=== PATIENT | male | born 1940 | race Caucasian/White ===

== ENCOUNTER 2022-03-17 18:56 | Emergency (ER) | payer MEDICARE, SELFPAY ==
[2022-03-17 19:09] VITALS: BP 174/83; PULSE 87; RESP 16; TEMP 38.2; O2SAT 95
--- NOTE | 2022-03-17 19:15 | XRR_ITS ---
PROCEDURE INFORMATION: Exam: XR Chest Exam date and time: 03/17/2022 8:31 PM Age: 81 years old Clinical indication: Cough and dyspnea; Additional info: Dyspnea/cough TECHNIQUE: Imaging protocol: Radiologic exam of the chest. Views: 1 view. COMPARISON: No relevant prior studies available. FINDINGS: Lungs: Calcified granuloma in the left lung. Focal airspace opacity and oval density in the lingula. The right lung is clear. Pleural spaces: Unremarkable. No pleural effusion. No pneumothorax. Heart/Mediastinum: Unremarkable. No cardiomegaly. Bones/joints: Unremarkable. XR/XR chest 1V portable [id number] IMPRESSION: 1. Opacity in the lingula could represent atelectasis, pneumonia, or a neoplastic process. Follow-up with CT imaging recommended.
--- NOTE | 2022-03-17 19:34 | W.ED.FEVER ---
HPI - Fever General: Chief Complaint: Fever Stated Complaint: dizzy, cough, congestion Time Seen by Provider: 03/17/22 19:14 Source: patient Mode of arrival: ambulatory History of Present Illness: 81-year-old male presents emergency room dizziness cough congestion fever cough is nonproductive is not had any diarrhea no anosmia. Symptoms began about the last 24 to 36 hours. No chest pain no dysuria urgency or frequency. Patient is diabetic hypertensive and overweight low-grade fever on arrival. MD elicited complaint: fever Pertinent past history: diabetes Onset (ago): hour(s) (24-36) Exacerbating factors: nothing Associated symptoms: Deny abdominal pain, flank pain, chills, chest pain, confusion, cough, diarrhea, dysuria, extremity pain, headache(s), myalgias, nasal congestion, nausea, night sweats, rash, rhinorrhea, short of breath, sinus pain, stiffness, sore throat, vaginal discharge, vomiting or weight loss Review of Systems Const: Denies: fever(s), chills, fatigue, malaise or night sweats ENMT: Denies: nasal congestion or sinus pain Card: Denies: chest pain GI: Denies: abdominal pain, nausea, vomiting or diarrhea : Denies: flank pain, difficulty urinating, dysuria, urinary frequency or urinary urgency Musc: Denies: neck pain, back pain or extremity pain Neuro: Denies: headache(s) or confusion PFSH ED PFSH: Medical History (Updated 03/17/22 @ 20:49 by Vignesh Cornell DO) Diabetes mellitus HTN (hypertension) Obesity Social History (Updated 03/17/22 @ 20:44 by Vignesh Cornell DO) Smoking and tobacco status: never smoked Alcohol intake: never Physical Exam Const: COMMON NORMALS: no acute distress GENERAL APPEARANCE: cooperative and comfortable ORIENTATION/CONSCIOUSNESS: Yes awake, Yes oriented to person, Yes oriented to place and Yes oriented to time HENMT: COMMON NORMALS: normocephalic, atraumatic and hearing grossly normal bilaterally HEAD & SCALP: normocephalic and atraumatic Resp: COMMON NORMALS: normal respiratory effort, No retractions, No use of accessory muscles and clear to auscultation bilaterally AUSCULTATION: clear to auscultation bilaterally Cardio: COMMON NORMALS: regular rate, regular rhythm and No murmurs present (Cardio) RATE: regular rate RHYTHM: regular rhythm GI: COMMON NORMALS: Soft to palpation and No hepatosplenomegaly present AUSCULTATION: Yes normoactive bowel sounds PALPATION: Yes Soft to palpation, No Tenderness to palpation present (GI), No Guarding due to palpation present (GI) and Yes No hepatosplenomegaly present Extremity: COMMON NORMALS: normal to inspection, capillary refill normal, no clubbing, cyanosis or edema, no calf tenderness and no pedal edema Neuro: SENSORIUM/ORIENTATION: Yes oriented to person, Yes oriented to place and Yes oriented to time Skin: COMMON NORMALS: no rashes or lesions noted GENERAL SKIN EXAM: no rashes or lesions noted Course Vital Signs: Vital signs: Vital Signs Temperature 100.7 F H 03/17/22 19:09 Pulse Rate 76 03/17/22 20:08 Respiratory Rate 18 03/17/22 19:47 Blood Pressure 147/76 03/17/22 20:08 Pulse Oximetry 95 03/17/22 20:08 Oxygen Delivery Me thod 03/17/22 20:08 MDM - Fever Medical Decision Making Patient COVID-positive tolerating well. He should have follow-up CT based on the chest x-ray findings at some point in the future. Encouraged him to follow-up with his primary care doctor. Discussion with him about COVID he does wish [facility] Medical Records I reviewed the patient's medical records. Lab Data I reviewed the patient's lab results. 03/17/22 20:55 Radiology Impressions Chest X-Ray 03/17/22 19:15 IMPRESSION: 1. Opacity in the lingula could represent atelectasis, pneumonia, or a neoplastic process. Follow-up with CT imaging recommended. Laboratory Results Sodium 139 mmol/L (136-145) 03/17/22 20:55 Potassium 4.2 mmol/L (3.5-5.1) 03/17/22 20:55 Chloride 102 mmol/L (98-107) 03/17/22 20:55 Carbon Dioxide 28 mmol/L (22-29) 03/17/22 20:55 Anion Gap 13.2 (5-19) 03/17/22 20:55 BUN 13 mg/dL (8-23) 03/17/22 20:55 Creatinine 1.0 mg/dL (0.7-1.2) 03/17/22 20:55 GFR Calculation Not Reportable 03/17/22 20:55 Glucose 97 mg/dL (65-115) 03/17/22 20:55 Calculated Osmolality 288 mOsm/kg (285-295) 03/17/22 20:55 Calcium 8.7 mg/dL (8.5-10.5) 03/17/22 20:55 Influenza Type A Ag negative (Negative) 03/17/22 19:34 Influenza Type B Ag negative (Negative) 03/17/22 19:34 SARS-CoV-2 Ag (Rapid) positive (Negative) 03/17/22 19:34 Discharge Plan Discharge Patient Disposition: Home Clinical Impression: COVID-19 Condition: Stable Prescriptions: New Paxlovid (EUA) 300 mg (150 mg x 2)-100 mg tablets,dose pack See Rx Instructions .ROUTE .COMPLEX Qty: 30 0RF Rx Instructions: take TWO 150 mg tablets of nirmatrelvir with ONE 100 mg tablet of ritonavir twice daily for 5 days No Action atorvastatin 20 mg tablet 20 mg PO DAILY Adult Aspirin EC Low Strength 81 mg Tablet,Delayed Release (Dr/Ec) 81 mg PO DAILY levothyroxine 125 mcg Tablet 125 mcg PO DAILY omeprazole 20 mg Capsule,Delayed Release(Dr/Ec) 20 mg PO DAILY Humalog Mix 75-25 KwikPen 100 unit/mL (75-25) Insulin Pen 32 unit SUBCUT DIRECTED Rx Instructions: 32 units in morning and 30 units in evening Januvia 100 mg Tablet 100 mg PO DAILY Discharge Orders: Discharge ED (Routine); Ordered 03/17/22 Ordered By: Vignesh Cornell Referrals: Thiago Tim DO [Primary Care Provider] - Discharge Diet: Usual diet Discharge Activity: Resume usual activity Patient Instructions: Opioid Safety, Pain Management Activity Restrictions/Additional Instructions: You were seen today for respiratory symptoms. You tested positive for COVID. Here given Paxlovid to take for 5 days at the end of this time you may still have some symptoms Paxlovid slows down the activity of the viruses but does not completely resolve it. He did have a slight abnormality in your chest x-ray and should follow-up with your primary care doctor for further evaluation after your COVID symptoms have resolved. Coding Level of Care Code ED Platen Drier Operator for Wilmer Fwd Exam Detailed
[2022-03-17] MEDS: sodium chloride 0.9% 500 ML 999 ML IV (19:44)
[2022-03-17 19:47] VITALS: BP 159/94; PULSE 78; RESP 18; O2SAT 95
[2022-03-17] MEDS: labetalol 5 mg/mL SDV 20mL 10 MG IVP (19:53)
[2022-03-17 20:07] LABS: Influenza A by IFA negative (Negative); Influenza B by IFA negative (Negative); SARS Covid-2 Antigen positive (Negative)
[2022-03-17 20:08] VITALS: BP 147/76; PULSE 76; O2SAT 95
[2022-03-17 21:18] LABS: Blood Urea Nitrogen 13 mg/dL (8-23); Calcium 8.7 mg/dL (8.5-10.5); Carbon Dioxide 28 mmol/L (22-29); Chloride 102 mmol/L (98-107); Glucose 97 mg/dL (65-115); Osmolality Calculated 288 mOsm/kg (285-295); Sodium 139 mmol/L (136-145)
[2022-03-17 21:20] LABS: Anion Gap 13.2 (5-19); Potassium 4.2 mmol/L (3.5-5.1)
[2022-03-17 21:28] VITALS: PULSE 78; RESP 18; O2SAT 95
== END 2022-03-17 21:25 | disposition home or self-care (01) ==
PROVIDERS: Emergency Medicine; Emergency Provider Family Medicine; PCP Internal Medicine
DX: U07.1 COVID-19 (principal); Z79.82 Long term (current) use of aspirin; Z79.4 Long term (current) use of insulin; E11.9 Type 2 diabetes mellitus without complications; I10 Essential (primary) hypertension
CPT/HCPCS: 71045; 80048; 87426; 87804; 96361; 96374; 99284; J3490; J7040

== ENCOUNTER 2022-11-22 06:27 | Emergency (ER) | payer MEDICARE, SELFPAY ==
[2022-11-22 06:28] VITALS: BP 154/74; PULSE 92; RESP 18; TEMP 36.8; O2SAT 95; BMI 40.0
--- NOTE | 2022-11-22 06:47 | ECG_ITS ---
[facility] Test Date: 2022-11-22 Pat Name: Les Stubbs Department: Room: Gender: Male [employer] Stewardess: : 1940 Requested By: Vignesh Naranjo Order Number: [id number] Oksana MD: Alison Wan M.D. Measurements Intervals [place] Rate: 87 P: 55 CO: 149 QRS: -30 QRSD: 94 T: 35 QT: 357 QTc: 430 Interpretive Statements SINUS RHYTHM BORDERLINE LEFT AXIS DEVIATION [QRS AXIS < -20] No previous ECG available for comparison Electronically Signed On 11-22-2022 20:23:30 CDT by Alison Wan M.D. [id number]
--- NOTE | 2022-11-22 06:47 | XRR_ITS ---
PROCEDURE INFORMATION: Exam: XR Chest Exam date and time: 11/22/2022 6:52 AM Age: 82 years old Clinical indication: Cough and dyspnea; Additional info: Dyspnea/cough TECHNIQUE: Imaging protocol: Radiologic exam of the chest. Views: 1 view. Total images: 2 COMPARISON: CR XR chest 2V* [id number] 03/25/2022 9:31 AM FINDINGS: Lungs: Trace atelectasis or scar noted in the left lung base. Minimal opacity laterally at the right lung base may represent minimal atelectasis or contusion. Benign granulomatous disease of the lung is noted. Pleural spaces: Unremarkable. No pleural effusion. No pneumothorax. Heart/Mediastinum: Unremarkable. No cardiomegaly. Bones/joints: Diffuse osteopenia noted. Right 7th, 8th, and 9th rib fractures. XR/XR chest 1V portable [id number] IMPRESSION: 1. Trace atelectasis or scar noted in the left lung base. 2. Right 7th, 8th, and 9th rib fractures. 3. Minimal opacity laterally at the right lung base may represent minimal atelectasis or contusion.
--- NOTE | 2022-11-22 06:51 | USCV_ITS ---
Les Stubbs Age: 82 Gender: M : 1940 Exam Date: 11/22/2022 07:24 Ordering Phys: Vignesh Cornell DO Technologist: [place] [facility] [place] Indication: swelling PROCEDURES: Venous duplex imaging was performed in bilateral lower extremities. The following venous structures were evaluated: common femoral vein, profunda vein, proximal portion of the greater saphenous vein, superficial femoral vein, and the popliteal vein. In addition, the posterior tibial and peroneal trunk were evaluated. FINDINGS: Normal 2-D Doppler and augmentation and compressibility throughout the lower extremity venous structures. Additional imaging through the proximal calf veins also reveals no thrombus. Limited evaluation of the greater saphenous vein is patent with no thrombus. CONCLUSIONS No DVT bilateral lower extremities. Dr. Hanh Short DO (Electronically Signed) Final Date: 22 November 2022 09:51 S
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
[2022-11-22 07:10] LABS: Basophils # 0.1 10^3/uL (0.0-0.1); Basophils % 0.4 %; Eosinophils # 0.1 10^3/uL (0.0-0.8); Eosinophils % 0.4 %; Hemoglobin 12.5 g/dL (11.7-16.6); Lymphocytes # 1.2 10^3/uL (0.8-4.8); Lymphocytes % 8.5 %; Mean Corpuscular HGB Conc 30.5 g/dL (30.0-36.0); Mean Corpuscular Hemoglobin 28.4 pg (28.0-34.0); Mean Corpuscular Volume 93.2 fl (80-94); Mean Platelet Volume 11.9 fL (7.4-10.4); Monocytes % 6.9 %; Neutrophils # 11.85 10^3/uL (1.8-7.7); Neutrophils % 83.6 %; Nucleated Red Blood Cells % 0 %; Platelet Count 244 10^3/cmm (130-400); Red Cell Distribution Width 15.7 % (12.1-15.1); White Blood Count 14.2 10^3/uL (4.0-10.0)
[2022-11-22 07:13] VITALS: BP 146/75; PULSE 86; O2SAT 96
--- NOTE | 2022-11-22 07:15 | PC.NURSE ---
PT NOTED TO HAVE SOME PURULENT DRAINAGE FROM LEFT LEG SURGICAL SITE. DRAINAGE IS THIN. SMALL AMOUNT. PHYSICIAN AWARE.
[2022-11-22 07:32] LABS: Alanine Aminotransferase 7 U/L (0-41); Albumin Level 3.7 g/dL (3.5-5.2); Alkaline Phosphatase 148 U/L (40-130); Anion Gap 16.2 (5-19); Aspartate Amino Transferase 16 U/L (0-40); Blood Urea Nitrogen 13 mg/dL (8-23); Calcium 8.7 mg/dL (8.5-10.5); Carbon Dioxide 24 mmol/L (22-29); Chloride 103 mmol/L (98-107); Globulin 2.8 g/dL (1.3-4.6); Glucose 353 mg/dL (65-115); Osmolality Calculated 300 mOsm/kg (285-295); Potassium 5.2 mmol/L (3.5-5.1); Sodium 138 mmol/L (136-145); Total Bilirubin 0.3 mg/dL (0.15-1.2); Total Protein 6.5 g/dL (6.6-8.7)
[2022-11-22] MEDS: iohexol 350 mg/mL 500 mL Btl (per mL) IV (07:50)
--- NOTE | 2022-11-22 08:24 | PC.NURSE ---
PT PLACED ON CONTINUOUS NIBP, SPO2, AND CM
[2022-11-22 08:45] VITALS: BP 147/96; PULSE 86; O2SAT 99
[2022-11-22 09:49] VITALS: BP 191/103; PULSE 78; O2SAT 95
== END 2022-11-22 09:51 | disposition home or self-care (01) ==
PROVIDERS: Emergency Provider Family Medicine; PCP Internal Medicine
DX: R06.00 Dyspnea, unspecified (principal); R06.4 Hyperventilation; F41.9 Anxiety disorder, unspecified; Z79.82 Long term (current) use of aspirin; Z79.4 Long term (current) use of insulin; E11.9 Type 2 diabetes mellitus without complications; I10 Essential (primary) hypertension
CPT/HCPCS: 36415; 71045; 71275; 80053; 85025; 93005; 93970; 99285; Q9967

== ENCOUNTER → 2022-11-29 13:11 | Outpatient (BNVA) | payer MEDICARE, SELFPAY | PROVIDERS: PCP Internal Medicine; Referring Provider Neurological Surgery; Visit Provider Internal Medicine | DX: D35.2 Benign neoplasm of pituitary gland (principal); H53.8 Other visual disturbances; Z79.890 Hormone replacement therapy | CPT/HCPCS: 99204 ==

== ENCOUNTER 2022-12-02 07:47 | Outpatient (CLI) | payer MEDICARE, SELFPAY ==
[2022-12-02 08:01] LABS: Total Volume Urine 2000 ml
[2022-12-02 08:14] LABS: Urine Creatinine 76 mg/dL (39-259)
[2022-12-08 11:50] LABS: Free Cortisol Urine 44.9 mcg/24 h (4.0-50.0); Total Urine 2000 mL; Urine Creatinine 1.42 g/24 h (0.50-2.15)
== END 2022-12-02 07:48 | disposition home or self-care (01) ==
LOC: LAB 07:48
PROVIDERS: PCP Internal Medicine; Visit Provider Internal Medicine
DX: D35.2 Benign neoplasm of pituitary gland (principal)
CPT/HCPCS: 82530; 82570

== ENCOUNTER 2023-02-16 12:55 | Oncology outpatient (recurring) (ONCR) | payer MEDICARE, SELFPAY ==
[2023-01-26 13:52] LABS: Basophils # 0.1 10^3/uL (0.0-0.1); Basophils % 0.6 %; Eosinophils # 0.2 10^3/uL (0.0-0.8); Eosinophils % 1.7 %; Hematocrit 38.8 % (37-53); Lymphocytes # 2.1 10^3/uL (0.8-4.8); Lymphocytes % 23.9 %; Mean Corpuscular HGB Conc 31.4 g/dL (30-55); Mean Corpuscular Hemoglobin 27.2 pg (27-33); Mean Corpuscular Volume 86.6 fl (82-101); Mean Platelet Volume 11.5 fL (7.4-10.4); Monocytes # 0.8 10^3/uL (0.2-0.9); Monocytes % 8.7 %; Neutrophils # 5.63 10^3/uL (1.8-7.7); Neutrophils % 64.6 %; Nucleated Red Blood Cells % 0 %; Platelet Count 215 10^3/cmm (157-399); Red Blood Count 4.48 10^6/uL (3.85-5.65); Red Cell Distribution Width 16.1 % (12.1-15.1); White Blood Count 8.71 10^3/uL (3.29-11.43)
[2023-01-26 14:18] LABS: Albumin Level 3.8 g/dL (3.5-5.2); Alkaline Phosphatase 145 U/L (40-130); Anion Gap 13.5 (5-19); Aspartate Amino Transferase 24 U/L (0-40); Blood Urea Nitrogen 16 mg/dL (8-23); C Reactive Protein 10.7 mg/L (0.0-4.9); Carbon Dioxide 27 mmol/L (22-29); Chloride 101 mmol/L (98-107); Creatine Phosphokinase 40 U/L (39-308); Globulin 3.4 g/dL (1.3-4.6); Glucose 169 mg/dL (65-115); Osmolality Calculated 289 mOsm/kg (285-295); Potassium 4.5 mmol/L (3.5-5.1); Sodium 137 mmol/L (136-145); Total Bilirubin 0.5 mg/dL (0.15-1.2); Total Protein 7.2 g/dL (6.6-8.7)
[2023-01-26 14:31] LABS: Alanine Aminotransferase 18 U/L (0-41)
[2023-02-02 14:30] VITALS: BP 131/85; PULSE 60; RESP 16; TEMP 36.3; O2SAT 98
[2023-02-02 14:40] LABS: Basophils % 0.7 %; Eosinophils # 0.2 10^3/uL (0.0-0.8); Eosinophils % 2.6 %; Hematocrit 40.7 % (37-53); Lymphocytes # 1.9 10^3/uL (0.8-4.8); Mean Corpuscular HGB Conc 31.4 g/dL (30-55); Mean Corpuscular Hemoglobin 27.2 pg (27-33); Mean Corpuscular Volume 86.6 fl (82-101); Mean Platelet Volume 11.5 fL (7.4-10.4); Monocytes # 0.5 10^3/uL (0.2-0.9); Monocytes % 8.4 %; Neutrophils # 3.41 10^3/uL (1.8-7.7); Neutrophils % 56.1 %; Nucleated Red Blood Cells % 0 %; Platelet Count 251 10^3/cmm (157-399); Red Cell Distribution Width 16.3 % (12.1-15.1); White Blood Count 6.07 10^3/uL (3.29-11.43)
[2023-02-02 14:59] LABS: Alanine Aminotransferase 12 U/L (0-41); Alkaline Phosphatase 123 U/L (40-130); Aspartate Amino Transferase 16 U/L (0-40); Blood Urea Nitrogen 15 mg/dL (8-23); C Reactive Protein 5.1 mg/L (0.0-4.9); Calcium 9.2 mg/dL (8.5-10.5); Carbon Dioxide 27 mmol/L (22-29); Chloride 102 mmol/L (98-107); Creatine Phosphokinase 52 U/L (39-308); Globulin 3.4 g/dL (1.3-4.6); Glucose 114 mg/dL (65-115); Osmolality Calculated 290 mOsm/kg (285-295); Sodium 139 mmol/L (136-145); Total Bilirubin 0.5 mg/dL (0.15-1.2); Total Protein 7.4 g/dL (6.6-8.7)
[2023-02-02 15:01] LABS: Anion Gap 14.7 (5-19)
[2023-02-02 15:02] LABS: Potassium 4.7 mmol/L (3.5-5.1)
[2023-02-09 13:00] VITALS: BP 147/79; PULSE 83; RESP 16; TEMP 36.6; O2SAT 97
[2023-02-09 13:10] LABS: Basophils % 0.5 %; Eosinophils # 0.2 10^3/uL (0.0-0.8); Eosinophils % 2.5 %; Hematocrit 41.5 % (37-53); Lymphocytes # 1.5 10^3/uL (0.8-4.8); Lymphocytes % 19.9 %; Mean Corpuscular HGB Conc 31.1 g/dL (30-55); Mean Corpuscular Hemoglobin 27.3 pg (27-33); Mean Corpuscular Volume 87.7 fl (82-101); Mean Platelet Volume 11.6 fL (7.4-10.4); Monocytes # 0.6 10^3/uL (0.2-0.9); Monocytes % 7.6 %; Neutrophils % 69.2 %; Nucleated Red Blood Cells % 0 %; Platelet Count 211 10^3/cmm (157-399); Red Blood Count 4.73 10^6/uL (3.85-5.65); Red Cell Distribution Width 16.6 % (12.1-15.1); White Blood Count 7.52 10^3/uL (3.29-11.43)
[2023-02-09 13:27] LABS: Alanine Aminotransferase 14 U/L (0-41); Alkaline Phosphatase 118 U/L (40-130); Anion Gap 14.4 (5-19); Aspartate Amino Transferase 17 U/L (0-40); Blood Urea Nitrogen 14 mg/dL (8-23); C Reactive Protein 15.9 mg/L (0.0-4.9); Calcium 9.2 mg/dL (8.5-10.5); Carbon Dioxide 26 mmol/L (22-29); Chloride 103 mmol/L (98-107); Glucose 117 mg/dL (65-115); Osmolality Calculated 290 mOsm/kg (285-295); Potassium 4.4 mmol/L (3.5-5.1); Sodium 139 mmol/L (136-145); Total Bilirubin 0.3 mg/dL (0.15-1.2)
[2023-02-16 13:50] VITALS: BP 125/76; PULSE 56; RESP 18; TEMP 36; O2SAT 97
[2023-02-16 14:49] LABS: Cortisol Random 11.79 ug/dL (2.47-19.5); Testosterone Total 186.9 ng/dL (193-740); Thyroid Stimulating Hormone 3.26 uIU/mL (0.27-4.20)
[2023-02-16 15:15] LABS: Luteinizing Hormone 5.7 mIU/mL (1.7-8.6); Prolactin 10.87 ng/mL (4.0-15.2)
[2023-02-17 10:28] LABS: Alanine Aminotransferase 29 U/L (0-41); Albumin Level 4.1 g/dL (3.5-5.2); Alkaline Phosphatase 112 U/L (40-130); Anion Gap 18.4 (5-19); Aspartate Amino Transferase 24 U/L (0-40); Blood Urea Nitrogen 18 mg/dL (8-23); C Reactive Protein 26.1 mg/L (0.0-4.9); Calcium 9.3 mg/dL (8.5-10.5); Carbon Dioxide 24 mmol/L (22-29); Chloride 102 mmol/L (98-107); Creatine Phosphokinase 52 U/L (39-308); Globulin 2.9 g/dL (1.3-4.6); Glucose 93 mg/dL (65-115); Osmolality Calculated 292 mOsm/kg (285-295); Potassium 4.4 mmol/L (3.5-5.1); Sodium 140 mmol/L (136-145); Total Bilirubin 0.2 mg/dL (0.15-1.2)
[2023-02-22 15:04] LABS: IGF1 LC/MS 111 ng/mL (34-246); Z Score (Male) 0.2 SD (-2.0 - +2.0)
== END 2023-02-21 23:59 | disposition home or self-care (01) ==
PROVIDERS: Internal Medicine; PCP Internal Medicine; Visit Provider Internal Medicine
DX: D35.2 Benign neoplasm of pituitary gland (principal)
CPT/HCPCS: 36592; 80053; 82533; 82550; 83001; 83002; 83520; 84146; 84305; 84403; 84439; 84443; 85025; 86140

== ENCOUNTER 2023-03-01 10:00 | Oncology outpatient (recurring) (ONCR) | payer MEDICARE, SELFPAY ==
[2023-02-23 13:30] VITALS: PULSE 88; RESP 18; TEMP 36.1; O2SAT 98
[2023-02-23 13:35] LABS: Basophils # 0.1 10^3/uL (0.0-0.1); Basophils % 1.1 %; Eosinophils # 0.2 10^3/uL (0.0-0.8); Eosinophils % 2.4 %; Hematocrit 42.5 % (37-53); Lymphocytes # 1.7 10^3/uL (0.8-4.8); Lymphocytes % 24.8 %; Mean Corpuscular HGB Conc 31.3 g/dL (30-55); Mean Corpuscular Hemoglobin 27.4 pg (27-33); Mean Corpuscular Volume 87.4 fl (82-101); Mean Platelet Volume 11.5 fL (7.4-10.4); Monocytes # 0.5 10^3/uL (0.2-0.9); Monocytes % 7.5 %; Neutrophils # 4.26 10^3/uL (1.8-7.7); Neutrophils % 63.9 %; Nucleated Red Blood Cells % 0 %; Platelet Count 241 10^3/cmm (157-399); Red Blood Count 4.86 10^6/uL (3.85-5.65); Red Cell Distribution Width 16.3 % (12.1-15.1); White Blood Count 6.66 10^3/uL (3.29-11.43)
[2023-02-23 13:41] LABS: Alanine Aminotransferase 20 U/L (0-41); Albumin Level 4.2 g/dL (3.5-5.2); Alkaline Phosphatase 114 U/L (40-130); Anion Gap 12.3 (5-19); Aspartate Amino Transferase 18 U/L (0-40); Blood Urea Nitrogen 12 mg/dL (8-23); Calcium 9.3 mg/dL (8.5-10.5); Carbon Dioxide 28 mmol/L (22-29); Chloride 100 mmol/L (98-107); Creatine Phosphokinase 56 U/L (39-308); Globulin 3.2 g/dL (1.3-4.6); Glucose 163 mg/dL (65-115); Osmolality Calculated 285 mOsm/kg (285-295); Potassium 4.3 mmol/L (3.5-5.1); Sodium 136 mmol/L (136-145); Total Bilirubin 0.5 mg/dL (0.15-1.2); Total Protein 7.4 g/dL (6.6-8.7)
[2023-03-01 10:50] VITALS: BP 140/87; PULSE 70; RESP 16; O2SAT 97
== END 2023-03-23 23:59 | disposition home or self-care (01) ==
PROVIDERS: Internal Medicine; PCP Internal Medicine; Visit Provider Radiology Radiation Oncology
DX: Z53.9 Procedure and treatment not carried out, unspecified reason
CPT/HCPCS: 36592; 80053; 82550; 85025; 86141

== ENCOUNTER → 2023-11-21 09:26 | Outpatient (BNVA) | payer MEDICARE, SELFPAY | PROVIDERS: PCP Internal Medicine; Visit Provider Internal Medicine | DX: D35.2 Benign neoplasm of pituitary gland (principal); H53.8 Other visual disturbances; E23.0 Hypopituitarism; Z79.890 Hormone replacement therapy | CPT/HCPCS: 99214 ==

== ENCOUNTER 2024-10-08 18:54 | Observation (INO) | payer MEDICARE, SELFPAY ==
[2024-10-08] VITALS (10 sets, daily range): BP systolic 132–178; BP diastolic 66–83; PULSE 54–73; RESP 16–19; TEMP 36.3–36.7; O2SAT 94–98; BMI 30.5
[2024-10-08 19:06] LABS: Glucose Point of Care 132 mg/dL (70-110)
--- NOTE | 2024-10-08 19:14 | CTR_ITS ---
PROCEDURE INFORMATION: Exam: CT Head Without Contrast Exam date and time: 10/08/2024 7:17 PM Age: 84 years old Clinical indication: Stroke-like symptoms; Generalized weakness; Additional info: Symptoms of acute stroke TECHNIQUE: Imaging protocol: Computed tomography of the head without contrast. Radiation optimization: All CT scans at this facility use at least one of these dose optimization techniques: automated exposure control; mA and/or kV adjustment per patient size (includes targeted exams where dose is matched to clinical indication); or iterative reconstruction. Other technique: STROKE PROTOCOL was implemented. COMPARISON: No relevant prior studies available. RADIATION DOSE METRICS: Total DLP (mGy-cm): 1120.68 FINDINGS: Brain: 8 mm curvilinear hyperdensity in the left cerebellum. No acute territorial region of loss of appiah-white differentiation. No mass effect or midline shift. Generalized parenchymal volume loss. Mild scattered nonspecific periventricular and subcortical white matter hypodensities, commonly sequela of chronic microvascular ischemic change. Cerebral ventricles: No acute hydrocephalus. Pituitary gland and sella: Heterogeneous enlarged pituitary measuring 1.9 x 1.8 cm, may contact the left optic chiasm without significant mass effect/displacement. Paranasal sinuses: Visualized sinuses are well-aerated. No fluid levels. Mastoid air cells: Visualized mastoid air cells are well aerated. Orbital cavities: No acute abnormality of the visualized orbits. Bones: No acute calvarial fracture. Chronic left orbital floor fracture. Soft tissues: No acute abnormality. CT/CT head thrombolytic [id number] IMPRESSION: 1. No CT evidence of acute territorial infarct. 2. 8 mm curvilinear hypodensity in the left cerebellum. Favor prominent vascular structure such as developmental venous anomaly or other vascular lesion, but cannot definitively exclude acute hemorrhage. MRI is recommended for further evaluation. 3. 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 Pituitary protocol MRI recommended for further evaluation. ASSESSMENT: ASPECTS ([place] Stroke Program Early CT Score) is 10.
--- NOTE | 2024-10-08 19:22 | CTR_ITS ---
PROCEDURE INFORMATION: Exam: CTA Head With Contrast, Arteriography Exam date and time: 10/08/2024 7:31 PM Age: 84 years old Clinical indication: Weakness; Additional info: Possible stroke TECHNIQUE: Imaging protocol: Computed tomographic angiography of the head with contrast. Exam focused on the arteries. 3D rendering (Not supervised by radiologist): MIP and/or 3D reconstructed images were created by the technologist. Radiation optimization: All CT scans at this facility use at least one of these dose optimization techniques: automated exposure control; mA and/or kV adjustment per patient size (includes targeted exams where dose is matched to clinical indication); or iterative reconstruction. Contrast material: OMNIPAQUE 350; Contrast volume: 100 ml; Contrast route: INTRAVENOUS (IV); COMPARISON: CT head thrombolytic [id number] 10/08/2024 7:17 PM RADIATION DOSE METRICS: Total DLP (mGy-cm): 485.88 FINDINGS: ANTERIOR CIRCULATION: Right internal carotid artery: Patent without high-grade stenosis. Right middle cerebral artery: M1 and M2 segments are patent without high-grade stenosis. Right anterior cerebral artery: A1 and A2 segments are patent without high-grade stenosis. Left internal carotid artery: Patent without high-grade stenosis. Left middle cerebral artery: M1 and M2 segments are patent without high-grade stenosis. Left anterior cerebral artery: A1 and A2 segments are patent without high-grade stenosis. POSTERIOR CIRCULATION: Right vertebral artery: V4 segment is patent without high-grade stenosis. Left vertebral artery: V4 segment is patent without high-grade stenosis. Basilar artery: Patent without high-grade stenosis. Right posterior cerebral artery: type origin of the right [employer] with hypoplastic P1 segment. P2 segment patent without high-grade stenosis. Left posterior cerebral artery: P1 and P2 segments are patent without high-grade stenosis. 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 Given this finding, differential consideration of possible hemorrhage in this region described on noncontrast CT head report is unlikely. Dural venous sinuses patent. Brain: Pituitary lesion as described on CT head report, with slight abutment of the optic chiasm better appreciated on this exam. Cerebral ventricles: No acute hydrocephalus. Bones/joints: No acute fracture. Soft tissues: Unremarkable. Other findings: No aneurysm. PROCEDURE INFORMATION: Exam: CTA Neck With Contrast Exam date and time: 10/08/2024 7:31 PM Age: 84 years old Clinical indication: Weakness; Additional info: Possible stroke TECHNIQUE: Imaging protocol: Computed tomographic angiography of the neck with contrast. Exam focused on the cervical segments of the vasculature. 3D rendering (Not supervised by radiologist): MIP and/or 3D reconstructed images were created by the technologist. Radiation optimization: All CT scans at this facility use at least one of these dose optimization techniques: automated exposure control; mA and/or kV adjustment per patient size (includes targeted exams where dose is matched to clinical indication); or iterative reconstruction. Contrast material: OMNIPAQUE 350; Contrast volume: 100 ml; Contrast route: INTRAVENOUS (IV); COMPARISON: CT angio chest PE protcl [id number] 11/22/2022 7:43 AM RADIATION DOSE METRICS: Total DLP (mGy-cm): 485.88 FINDINGS: Right common carotid artery: Patent. No high grade stenosis. Right internal carotid artery: Patent. Mild carotid bulb plaque with no stenosis by NASCET criteria. Right external carotid artery: Patent. No high grade stenosis at the origin. Left common carotid artery: Patent. No high grade stenosis. Left internal carotid artery: Patent. Mild carotid bulb plaque with no stenosis by NASCET criteria. Left external carotid artery: Patent. No high grade stenosis at the origin. Right vertebral artery: Patent. No high grade stenosis. Left vertebral artery: Dominant. Patent without high-grade stenosis. Soft tissues: Unremarkable. Bones/joints: No acute fracture. Cervical spondylosis. CT/CT angio headneck* [id number] IMPRESSION: 1. No large vessel occlusion or high-grade stenosis. 2. The curvilinear hyperdensity in the left cerebellum described on same-day noncontrast CT head report corresponds to a prominent enhancing venous structure, most consistent with developmental venous anomaly. IMPRESSION: Patent cervical carotid and vertebral arteries. No high-grade stenosis. REFERENCES: NASCET CRITERIA. The degree of stenosis in the cervical segment of the internal carotid artery is based on NASCET criteria. Normal is no stenosis. Mild is less than 50% stenosis. Moderate is 50-69% stenosis. Severe is 70% to 99% stenosis. Total occlusion is no detectable patent lumen.
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
--- NOTE | 2024-10-08 19:31 | W.ED.NEUROSD ---
HPI - Neuro Symptoms/Deficit General: Chief Complaint: Neuro Symptoms/Deficit Stated Complaint: numbness all over, sweating Time Seen by Provider: 10/08/24 19:12 History of Present Illness: 84-year-old man with history of obesity, diabetes and hypertension who presents emergency room with strokelike symptoms. He has had multiple episodes of slurred speech, difficulty speaking over the last 2 days. It is resolved upon arrival. He was seen upon arrival by neurology. Currently with no deficits. His recently. Today's episode was not witnessed by family. Related Data Home Medications ?Medication ?Instructions ?Recorded ?Confirmed aspirin 81 mg tablet,delayed 81 mg PO DAILY 03/17/22 11/21/23 release atorvastatin 20 mg tablet 20 mg PO DAILY 03/17/22 11/21/23 sitagliptin phosphate 100 mg 100 mg PO DAILY 03/17/22 11/29/22 tablet (Januvia) cholecalciferol (vitamin D3) 25 25 mcg PO DAILY 11/22/22 11/21/23 mcg (1,000 unit) capsule (Vitamin D3) insulin glargine 100 unit/mL (3 40 unit SUBCUT QAM 11/22/22 11/21/23 mL) subcutaneous pen (Lantus Solostar U-100 Insulin) lidocaine 4 % topical patch 1 patch topical BID PRN Pain 11/22/22 11/29/22 lorazepam 0.5 mg tablet 0.5 mg PO DAILY 11/22/22 11/21/23 melatonin 3 mg tablet 3 mg PO QPM 11/22/22 11/29/22 ondansetron HCl 4 mg tablet 4 mg PO Q4H 11/22/22 11/29/22 pantoprazole 40 mg tablet,delayed 40 mg PO DAILY 11/22/22 11/21/23 release Previous Rx's ?Medication ?Instructions ?Recorded levothyroxine 25 mcg tablet 25 mcg PO DAILY #90 tabs 11/21/23 Allergies Allergy/AdvReac Type Severity Reaction Status Date / Time No Known Allergies Allergy Verified 11/21/23 07:42 Review of Systems Narrative: Constitutional symptoms: Negative except as documented in HPI. Skin symptoms: Negative except as documented in HPI. Eye symptoms: Negative except as documented in HPI. ENMT symptoms: Negative except as documented in HPI. Respiratory symptoms: Negative except as documented in HPI. Cardiovascular symptoms: Negative except as documented in HPI. Gastrointestinal symptoms: Negative except as documented in HPI. Genitourinary symptoms: Negative except as documented in HPI. Musculoskeletal symptoms: Negative except as documented in HPI. Neurologic symptoms: Negative except as documented in HPI. Psychiatric symptoms: Negative except as documented in HPI. Endocrine symptoms: Negative except as documented in HPI. PFSH ED PFSH: Medical History Obesity Diabetes mellitus HTN (hypertension) Social History Smoking and tobacco/nicotine status: never used tobacco/nicotine Alcohol intake: never Physical Exam Narrative: EXAM NARRATIVE: General: Alert, no acute distress. Skin: Warm, dry. Head: Normocephalic, atraumatic. Neck: Supple, trachea midline. Eye: Extraocular movements are intact. Ears, nose, mouth and throat: mucosa moist. Cardiovascular: Regular, Normal peripheral perfusion. Respiratory: Lungs are clear to auscultation, respirations are non-labored, breath sounds are equal, Symmetrical chest wall expansion. Gastrointestinal: Soft, Nontender, Non distended Musculoskeletal: Normal ROM, no deformity. Neurological: Alert and oriented, No focal neurological deficit observed. Psychiatric: Cooperative, appropriate mood & affect. Course Vital Signs: Vital signs: Vital Signs Temperature 97.6 F 10/08/24 18:57 Pulse Rate 67 10/08/24 19:40 Respiratory Rate 16 10/08/24 18:57 Blood Pressure 144/71 10/08/24 19:40 Pulse Oximetry 97 10/08/24 19:40 Oxygen Delivery Me thod Room Air 10/08/24 19:40 MDM - Neuro Symptoms/Deficit Medical Decision Making Medical decision making: Differential diagnosis for patient with focal neurologic deficit(s) includes but not limited to and based on the above HPI, review of systems and physical exam: ischemic stroke, hemorrhagic stroke and embolic stroke secondary to atrial fibrillation), TIA, Napoles's palsey, metabolic encephalopathy with previous stroke. Orders placed to evaluate differential diagnosis based on the above differential, HPI and physical exam NIH Stroke Scale/Score (NIHSS) from [email or web address] on 10/08/2024 All calculations should be rechecked by clinician prior to use RESULT SUMMARY: 0 points NIH Stroke Scale INPUTS: 1A: Level of consciousness ?> 0 = Alert; keenly responsive 1B: Ask month and age ?> 0 = Both questions right 1C: 'Blink eyes' & 'squeeze hands' ?> 0 = Performs both tasks 2: Horizontal extraocular movements ?> 0 = Normal 3: Visual martel ?> 0 = No visual loss 4: Facial palsy ?> 0 = Normal symmetry 5A: Left arm motor drift ?> 0 = No drift for 10 seconds 5B: Right arm motor drift ?> 0 = No drift for 10 seconds 6A: Left leg motor drift ?> 0 = No drift for 5 seconds 6B: Right leg motor drift ?> 0 = No drift for 5 seconds 7: Limb Ataxia ?> 0 = No ataxia 8: Sensation ?> 0 = Normal; no sensory loss 9: Language/aphasia ?> 0 = Normal; no aphasia 10: Dysarthria ?> 0 = Normal 11: Extinction/inattention ?> 0 = No abnormality CT head: No acute intracranial process. no intracranial hemorrhage, no evidence of infarct. no evidence of acute fracture.This was reviewed and interpreted by myself the ER physician. CTA of the head and neck: Structure seen on previous CT is thought to be a venous abnormality. No obvious stenosis or occlusions are identified. No mass. This was reviewed and interpreted by myself the emergency room physician. I also reviewed the radiology report. Consultation: I spoke with Dr. Steel who is reviewed the films and has evaluated the patient and recommends admission for an echo in the morning and for evaluation overnight. Symptoms have resolved. No TNKase indicated. She recommends increasing statin and adding Plavix. Lab Review: Laboratory results were reviewed and interpreted by myself the emergency room physician. No leukocytosis. No anemia. No renal failure. I reviewed the patient's medical record. Reexamination: Patient remained stable. No increased work of breathing. No altered mental status. No focal motor deficits. Consultation: I spoke with Dr. Barahona who is on-call for the hospitalist service who agrees to admission. Assessment and plan: TIA -I discussed the patient with the hospitalist on-call who is admitting the patient. - Discussed findings and plan with patient. Answered any questions. - All laboratory values were reviewed and interpreted personally by myself, the ER physician - All imaging was reviewed and interpreted personally by myself, the ER physician. - Evaluation and treatment of this problem were appropriate in the emergency setting Lab Data 10/08/24 19:20 10/08/24 19:[address] 10/08/24 19:[address]: 1[address] CT evidence of acute territorial infarct. 2. 8 mm curvilinear hypodensity in the left cerebellum. Favor prominent vascular structure such as developmental venous anomaly or other vascular lesion, but cannot definitively exclude acute hemorrhage. MRI is recommended for further evaluation. 3. 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 Pituitary protocol MRI recommended for further evaluation. ASSESSMENT: ASPECTS ([place] Stroke Program Early CT Score) is 10. ADDENDUM: 10/08/241944 THIS REPORT CONTAINS FINDINGS THAT MAY BE CRITICAL TO PATIENT CARE. The findings were verbally communicated via telephone conference with Dr. Sena at 7:43 PM CDT on 10/08/2024. Head/Neck CTA 10/08/24 19:22 IMPRESSION: 1. No large vessel occlusion or high-grade stenosis. 2. The curvilinear hyperdensity in the left cerebellum described on same-day noncontrast CT head report corresponds to a prominent enhancing venous structure, most consistent with developmental venous anomaly. IMPRESSION: Patent cervical carotid and vertebral arteries. No high-grade stenosis. REFERENCES: NASCET CRITERIA. The degree of stenosis in the cervical segment of the internal carotid artery is based on NASCET criteria. Normal is no stenosis. Mild is less than 50% stenosis. Moderate is 50-69% stenosis. Severe is 70% to 99% stenosis. Total occlusion is no detectable patent lumen. Laboratory Results WBC 8.43 10^3/uL (3.29-11.43) 10/08/24 19:20 RBC 5.27 10^6/uL (3.85-5.65) 10/08/24 19:20 Hgb 14.80 g/dL (11.27-16.99) 10/08/24 19:20 Hct 46.5 % (37-53) 10/08/24 19:20 MCV 88.2 fl (82-101) 10/08/24 19:20 MCH 28.1 pg (27-33) 10/08/24 19:20 MCHC 31.8 g/dL (30-55) 10/08/24 19:20 RDW 15.0 % (12.1-15.1) 10/08/24 19:20 Plt Count 177 10^3/cmm (157-399) 10/08/24 19:20 MPV 11.6 fL (7.4-10.4) H 10/08/24 19:20 Neut % (Auto) 75.7 % 10/08/24 19:20 Lymph % (Auto) 11.9 % 10/08/24 19:20 [place] % (Auto) 9.7 % 10/08/24 19:20 Eos % (Auto) 1.8 % 10/08/24 19:20 Baso % (Auto) 0.7 % 10/08/24 19:20 Neut # (Auto) 6.38 10^3/uL (1.8-7.7) 10/08/24 19:20 Lymph # (Auto) 1.0 10^3/uL (0.8-4.8) 10/08/24 19:20 [place] # (Auto) 0.8 10^3/uL (0.2-0.9) 10/08/24 19:20 Eos # (Auto) 0.2 10^3/uL (0.0-0.8) 10/08/24 19:20 Baso # (Auto) 0.1 10^3/uL (0.0-0.1) 10/08/24 19:20 Nucleated RBC % (auto) 0 % 10/08/24 19:20 Nucleated RBCs # 0.0 /100WBC 10/08/24 19:20 PT 13.90 SECONDS (12.1-14.9) 10/08/24 19:20 INR 1.00 (0.8-1.2) 10/08/24 19:20 APTT 29.9 SECONDS (23.9-36.7) 10/08/24 19:20 Sodium 144 mmol/L (136-145) 10/08/24 19:20 Potassium 3.9 mmol/L (3.5-5.1) 10/08/24 19:20 Chloride 105 mmol/L (98-107) 10/08/24 19:20 Carbon Dioxide 27 mmol/L (22-29) 10/08/24 19:20 Anion Gap 15.9 (5-19) 10/08/24 19:20 BUN 22 mg/dL (8-23) 10/08/24 19:20 Creatinine 1.2 mg/dL (0.7-1.2) 10/08/24 19:20 GFR Calculation Not Reportable 10/08/24 19:20 Glucose 117 mg/dL (65-115) H 10/08/24 19:20 POC Glucose 132 mg/dL (70-110) H 10/08/24 19:02 Calculated Osmolality 302 mOsm/kg (285-295) H 10/08/24 19:20 Lactic Acid 1.0 mmol/L (0.5-2.2) 10/08/24 19:52 Calcium 9.2 mg/dL (8.5-10.5) 10/08/24 19:20 Total Bilirubin 0.3 mg/dL (0.15-1.2) 10/08/24 19:20 AST 40 U/L (0-40) 10/08/24 19:20 ALT 35 U/L (0-41) 10/08/24 19:20 Alkaline Phosphatase 101 U/L (40-130) 10/08/24 19:20 Total Protein 6.8 g/dL (6.6-8.7) 10/08/24 19:20 Albumin 3.9 g/dL (3.5-5.2) 10/08/24 19:20 Globulin 2.9 g/dL (1.3-4.6) 10/08/24 19:20 All radiology interpretation(s) finalized by discharge Discharge Plan Discharge Patient Disposition: Admitted As Inpatient Clinical Impression: TIA (transient ischemic attack) Condition: Stable Coding Level of Care Code ED Paper [employer]one Maker for Wilmer Grissom
[2024-10-08 19:34] LABS: Basophils # 0.1 10^3/uL (0.0-0.1); Basophils % 0.7 %; Eosinophils # 0.2 10^3/uL (0.0-0.8); Eosinophils % 1.8 %; Hematocrit 46.5 % (37-53); Lymphocytes % 11.9 %; Mean Corpuscular HGB Conc 31.8 g/dL (30-55); Mean Corpuscular Hemoglobin 28.1 pg (27-33); Mean Corpuscular Volume 88.2 fl (82-101); Mean Platelet Volume 11.6 fL (7.4-10.4); Monocytes # 0.8 10^3/uL (0.2-0.9); Monocytes % 9.7 %; Neutrophils # 6.38 10^3/uL (1.8-7.7); Neutrophils % 75.7 %; Nucleated Red Blood Cells % 0 %; Platelet Count 177 10^3/cmm (157-399); Red Blood Count 5.27 10^6/uL (3.85-5.65); White Blood Count 8.43 10^3/uL (3.29-11.43)
[2024-10-08] MEDS: iohexol 350 mg/mL 500 mL Btl (per mL) IV (19:36)
--- NOTE | 2024-10-08 19:42 | ECG_ITS ---
[facility]: 2024-10[facility]08 Pat Name: Les Stubbs Department: Room: Gender: Male Communications Department Chairperson: : 1940 Requested By: Lisa Naranjo Order Number: [id number] Oksana MD: Alison Wan M.D. Measurements Intervals [place] Rate: 67 P: 59 LA: 158 QRS: -15 QRSD: 102 T: 44 QT: 437 QTc: 465 Interpretive Statements SINUS RHYTHM WITH MARKED SINUS ARRHYTHMIA Compared to ECG 11/22/2022 06:35:03 No significant changes Electronically Signed On 10-10-2024 06:09:29 CDT by Alison Wan M.D. [email or web address]
[2024-10-08 19:58] LABS: Partial Thromboplastin Time 29.9 SECONDS (23.9-36.7)
[2024-10-08 20:12] LABS: Alanine Aminotransferase 35 U/L (0-41); Albumin Level 3.9 g/dL (3.5-5.2); Alkaline Phosphatase 101 U/L (40-130); Anion Gap 15.9 (5-19); Aspartate Amino Transferase 40 U/L (0-40); Blood Urea Nitrogen 22 mg/dL (8-23); Calcium 9.2 mg/dL (8.5-10.5); Carbon Dioxide 27 mmol/L (22-29); Chloride 105 mmol/L (98-107); Globulin 2.9 g/dL (1.3-4.6); Glucose 117 mg/dL (65-115); Osmolality Calculated 302 mOsm/kg (285-295); Potassium 3.9 mmol/L (3.5-5.1); Sodium 144 mmol/L (136-145); Total Bilirubin 0.3 mg/dL (0.15-1.2); Total Protein 6.8 g/dL (6.6-8.7)
--- NOTE | 2024-10-08 21:26 | PC.NURSE ---
pt report called to Han[facility] on med surg. [id number].
[2024-10-08 21:41] LABS: Bilirubin Urine Negative (Negative); Blood Urine Negative (Negative); Glucose Urine UA 3+ (Normal); Ketones Urine Negative (Negative); Leukocyte Esterase Urine Negative (Negative); Nitrate Urine Negative (Negative); Protein Urine Trace (Negative); Urine Appearance Clear (CLEAR); Urine Color Yellow (Yellow); pH Urine 6.5 (5-7)
[2024-10-08 21:46] LABS: Add Urine Microscopic? YES; Bacteria Urine None Seen /hpf; Hyaline Casts Urine 0-4 /lpf; RBC Urine 0-2 /hpf (0-2); Squamous Epithelial Cell Urine 0-5 /hpf (0-5); WBC Urine 0-5 /hpf (0-5)
[2024-10-08 22:15] LABS: Amphetamines Screen Urine Negative (Negative); Barbiturates Screen Urine Negative (Negative); Benzodiazepines Screen Urine Positive (Negative); Cocaine Screen Urine Negative (Negative); Opiate Screen Urine Negative (Negative); PCP Screen Urine Negative (Negative); THC Screen Urine Negative (Negative)
[2024-10-08 22:16] LABS: Add Urine Culture? No; Specific Gravity, Urine 1.089 (1.005-1.030)
--- NOTE | 2024-10-08 22:40 | PM.HP ---
Providers/Chief Complaint Admitting Physician: Alisson Barahona MD--- seen patient before midnight Primary Care Provider: Jay Gardiner MD Chief Complaint: numbness , sweating, dysarthria, speech problems History of Present Illness Les Stubbs is a 84 year old male with medical history significant for high blood pressure diabetes type 2 hypercholesterolemia presenting with speech problems regarding speech difficulty in the room. Patient does have pituitary adenoma for which he does MRI over at [facility] he had a CT and CTA of the head and neck done and it was unremarkable. Patient to do MRI without contrast in the morning and optimizing medication with adding Plavix to patient regimen of 81 mg of aspirin. Patient is on atorvastatin 20 mg we will increase this to 40 mg once daily. Neurology has been consulted with Dr. Steel who had already seen the patient. Patient at this time of my evaluation had resolved and his speech difficulty. Will hydrate patient gently to provide volume will allow some degree of blood pressure for cerebral perfusion will keep glycemia euglycemic. Patient will have MRI echocardiogram tomorrow if all is well then patient can go home. Patient is on 23-hour observation status on [facility] with telemetry. Review of Systems Narrative: System review upon 10 organ system reviewed we are noted to be fairly unremarkable at this time of my evaluation. Medications/Allergies Home Medications ?Medication ?Instructions ?Recorded ?Confirmed ?Last Taken ?Type aspirin 81 mg tablet,delayed 81 mg PO DAILY 03/17/22 10/08/24 11/21/22 History release atorvastatin 20 mg tablet 20 mg PO BEDTIME 03/17/22 10/08/24 11/21/22 History sitagliptin phosphate 100 mg 100 mg PO DAILY 03/17/22 10/08/24 11/21/22 History tablet (Januvia) cholecalciferol (vitamin D3) 25 25 mcg PO DAILY 11/22/22 10/08/24 11/21/22 History mcg (1,000 unit) capsule (Vitamin D3) insulin glargine 100 unit/mL (3 40 unit SUBCUT QAM 11/22/22 10/08/24 11/21/22 History mL) subcutaneous pen (Lantus Solostar U-100 Insulin) lorazepam 0.5 mg tablet 0.5 mg PO BID 11/22/22 10/08/24 11/21/22 History pantoprazole 40 mg tablet,delayed 40 mg PO DAILY 11/22/22 10/08/24 11/21/22 History release levothyroxine 25 mcg tablet 25 mcg PO DAILY #90 tabs 11/21/23 10/08/24 Unknown Rx dapagliflozin propanediol 10 mg 10 mg PO DAILY 10/08/24 10/08/24 Unknown History tablet (Farxiga) doxycycline hyclate 100 mg tablet 100 mg PO DAILY 10/08/24 10/08/24 Unknown History insulin lispro 100 unit/mL 10 unit SUBCUT TID 10/08/24 10/08/24 Unknown History subcutaneous pen levothyroxine 125 mcg tablet 125 mcg PO QAM 10/08/24 10/08/24 Unknown History sertraline 25 mg tablet 25 mg PO DAILY 10/08/24 10/08/24 Unknown History trazodone 100 mg tablet 100 mg PO BEDTIME 10/08/24 10/08/24 Unknown History Allergies Allergy/AdvReac Type Severity Reaction Status Date / Time metformin Allergy ALGY-Rash Verified 10/08/24 23:00 PFSH Acute PFSH: Medical History Obesity Diabetes mellitus HTN (hypertension) Social History Smoking and tobacco/nicotine status: never used tobacco/nicotine Alcohol intake: never Vitals/I&O/Wt Last Vital Signs Temp 97.6 F 10/08/24 18:57 Pulse 70 10/08/24 21:32 Resp 17 10/08/24 21:15 BP 163/78 10/08/24 21:32 Pulse Ox 95 10/08/24 21:32 O2 Del Method Room Air 10/08/24 21:15 Weight last 48 hrs Weight 95.708 kg Physical Exam Narrative: General The patient looks well in no apparent distress has family at the bedside son and [id number] very supportive. HEENT normocephalic/atraumatic neck neck is supple cardiovascular heart is regular lungs are pretty much clear abdomen soft nontender nondistended unremarkable extremities intact no edema has good pulses neurology there is no focality lab studies lab studies reviewed and noted. Data 10/08/24 19:20 10/08/24 19:20 Micro: Microbiology 10/08/24 19:55 Blood Culture - Preliminary Blood SPECIMEN COLLECTED 10/08/24 19:52 Blood Culture - Preliminary Blood SPECIMEN COLLECTED A&P Assessment and plan (1) TIA (transient ischemic attack): - Patient with strokelike symptoms and with risk factors - On 81 mg of aspirin at home - We had Plavix - Echocardiogram in the morning - MRI of the brain to rule out for any acute stroke - CT and CTA of the head and neck are clear. 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 Keep patient euglycemic ?Accu-Chek AC and at bedtime Was continue to follow through monitor (5) HTN (hypertension): Continue home medication for blood pressure, once the event is matured Plan GI and DVT prophylaxis in place with PPI and anticoagulant subcutaneously for care PDMP PDMP Reviewed: Last Reviewed 10/08/24 22:55 by Alisson Barahona MD Attestations Medical Necessity Statement*: Patient is for 23-hour observation for TIA rule out CVA patient is under observation admission placement. Coding Level of Care Code 53754 Diagnoses TIA (transient ischemic attack) G45.9 Central hypogonadism E23.0 Pituitary macroadenoma D35.2 Diabetes mellitus E11.9 HTN (hypertension) I10 Time Spent (min) 60
[2024-10-08] MEDS: heparin 5,000 unit/mL INJ 1 mL 5000 UNIT SUBCUT (23:40)
[2024-10-08] MEDS: atorvastatin 40 mg Tablet PO (23:40)
[2024-10-08] MEDS: sodium chloride 0.9% 1,000 ML 75 ML IV (23:40)
[2024-10-09] MEDS: trazodone 100 mg Tablet PO (00:28)
[2024-10-09] MEDS: LORazepam 0.5 mg Tablet PO ×3 (00:28→16:27)
[2024-10-09 04:01] VITALS: BP 117/66; PULSE 57; RESP 16; TEMP 36.4; O2SAT 95
[2024-10-09 05:55] LABS: Basophils # 0.1 10^3/uL (0.0-0.1); Basophils % 0.7 %; Eosinophils # 0.3 10^3/uL (0.0-0.8); Eosinophils % 3.7 %; Hematocrit 43.2 % (37-53); Lymphocytes # 1.8 10^3/uL (0.8-4.8); Lymphocytes % 24.3 %; Mean Corpuscular HGB Conc 31.3 g/dL (30-55); Mean Corpuscular Hemoglobin 28.4 pg (27-33); Mean Corpuscular Volume 90.9 fl (82-101); Monocytes # 0.8 10^3/uL (0.2-0.9); Monocytes % 10.4 %; Neutrophils # 4.58 10^3/uL (1.8-7.7); Neutrophils % 60.6 %; Nucleated Red Blood Cells % 0 %; Platelet Count 172 10^3/cmm (157-399); Red Blood Count 4.75 10^6/uL (3.85-5.65); Red Cell Distribution Width 15.1 % (12.1-15.1); White Blood Count 7.56 10^3/uL (3.29-11.43)
[2024-10-09 06:11] LABS: Estmated Average Glucose 120; Hemoglobin A1C 5.8 % (4.0-6.0)
[2024-10-09 06:16] LABS: Alanine Aminotransferase 27 U/L (0-41); Albumin Level 3.2 g/dL (3.5-5.2); Alkaline Phosphatase 78 U/L (40-130); Anion Gap 11.9 (5-19); Aspartate Amino Transferase 26 U/L (0-40); Blood Urea Nitrogen 18 mg/dL (8-23); Calcium 8.5 mg/dL (8.5-10.5); Carbon Dioxide 27 mmol/L (22-29); Chloride 107 mmol/L (98-107); Globulin 2.4 g/dL (1.3-4.6); Glucose 146 mg/dL (65-115); Magnesium 2.2 mg/dL (1.7-2.3); Osmolality Calculated 299 mOsm/kg (285-295); Phosphorus 3.8 mg/dL (2.5-4.5); Potassium 3.9 mmol/L (3.5-5.1); Sodium 142 mmol/L (136-145); Total Bilirubin 0.4 mg/dL (0.15-1.2); Total Protein 5.6 g/dL (6.6-8.7)
[2024-10-09 06:29] LABS: Chol HDL Ratio 2.08 mg/dL (1.0-5.00); Cholesterol 104 mg/dL (0-200); HDL Cholesterol 50 mg/dL (60-100); LDL Cholesterol Calculated 40 mg/dL (50-129); Triglycerides 70 mg/dL (0-150)
[2024-10-09 07:01] VITALS: BP 140/80; PULSE 61; RESP 16; TEMP 36.6; O2SAT 95
--- NOTE | 2024-10-09 08:38 | PC.NURSE ---
Blood Sugar/Diet Order: Messaged Dr. Almanza to get diet order for pt due to blood sugar being 60. Dr. Almanza informed that this nurse gave orange juice per protocol. Per Dr. Almanza, Give D10% 250 cc bolus STAT.
[2024-10-09] MEDS: pantoprazole DR 40 mg Tablet PO (08:40)
[2024-10-09] MEDS: aspirin 81 mg EC Tablet PO (08:40)
[2024-10-09] MEDS: docusate sodium 100 mg Capsule PO (08:40)
[2024-10-09] MEDS: clopidogrel 75 mg Tablet PO (08:40)
[2024-10-09 08:47] LABS: Glucose Point of Care 60 mg/dL (70-110)
[2024-10-09] MEDS: dextrose 10% 250 ML 1000 ML IV (08:52)
--- NOTE | 2024-10-09 09:21 | PC.NURSE ---
investor relations coordinator haritha @ [phone]- gave patient stroke education book and reviewed it with him and his son.
[2024-10-09 09:27] LABS: Glucose Point of Care 179 mg/dL (70-110)
--- NOTE | 2024-10-09 10:40 | PC.CHAP ---
Pastoral Care Encounter/Spiritual Assessment Type of Contact [] Declined rn icu visit [] Patient/Family/Request visit [] Outpatient visit [] Follow-up visit [] Physician referral [] Code/Alert [] Routine visit [] Staff referral [] Actively dying [] Patient sleeping [] Family support [] [] Out of room [] Palliative care [] [x] Receiving care in room [] Pre-surgical visit [] Trauma [] Long length of stay [] ICU visit [] Other: Relational/Emotional Strength [] Patient feels connected with others/family/visitors/staff [] Distress [] Loneliness/isolation [] Abandonment Spirituality of Patient [] Person of Luiza [] Attends [employer] of their [place] [] Believes in Prayer [] Reads Bible or Congregational materials [] There are Spiritual issues to be addressed Geodesist Interventions [] Prayer [] Active listening [] Non-anxious presence [] Spiritual/emotional support [] Crisis/trauma care [] Spiritual counseling [] Bereavement support [] Provided bereavement packet [] Provided Bible/devotional materials [] Provided toy/stuffed animal, coloring book to patient or family member [] Provided Communion [] Anointing/[place] [] Salvation [] Completed spiritual assessment [] Other: Impact on Illness or Injury [] Angry [] Fearful [] Anxious [] Often cries [] Exhaustion [] Unable to work [] Unable to attend jainism [] Unable to walk/stand [] Unable to read [] Unable to drive [] Unable to eat/drink [] Unable to sleep [] Unable to be with family [] Patient intubated [] Other: Summary Time spent with patient
--- NOTE | 2024-10-09 11:15 | MR_ITS ---
WS: [id number] MRI BRAIN WITH AND WITHOUT CONTRAST HISTORY: TIA , venous anomaly in cerebellum COMPARISON: CT head 10/08/2024 TECHNIQUE: Multiplanar imaging performed through the brain with MultiHance 20 ml's IV. No acute infarcts are seen. Coulter-white matter differentiation is well preserved. Mild bilateral cerebral and cerebellar atrophy. Several scattered T2 and FLAIR signal hyperintensities in the subcortical white matter. Prior infarct. No susceptibility artifacts or prior lacunar infarcts. Ventricles and extra-axial spaces are normal. Large solid mass arising from the pituitary gland with mild diffuse enhancement on the postcontrast imaging. Mass measures 1.7 cm transversely x 1.9 cm anterior posterior x 2.0 cm superior-inferior. There is displacement of the infundibulum and contact on the optic chiasm. Mass extends to the carotid arteries in the cavernous sinuses but does not necessarily encase the arteries. Visualized posterior fossa and brainstem are also normal. Enhancing serpiginous venous angioma noted within the LEFT cerebellum corresponding to the recent abnormality described on CT. No additional vascular malformations. No intracranial mass. Dural venous sinuses are normal. Paranasal sinuses: Well aerated with no significant disease. Mastoid air cells: Normal. Calvarium and scalp: Normal. MR/MR head wo/w con [id number] IMPRESSION: 1. LEFT cerebellar venous angioma corresponds to the finding described on rece nt CT head. 2. No intracranial hemorrhage. No acute infarct. 3. Large enhancing mass centered in the sella turcica without a separate pitui tary gland identified. Highly suspicious for pituitary macroadenoma. This study was not performed as a dedicated pituitary exam but this is likely a pituitary macroadenoma. Consider follow-up MRI pituitary evaluation with and without con trast. Follow-up MRI can be performed on a nonurgent basis.
[2024-10-09 11:17] VITALS: BP 158/80; PULSE 62; RESP 17; TEMP 36.4; O2SAT 96
--- NOTE | 2024-10-09 11:17 | MR_ITS ---
WS: [id number] MRA ANGIOGRAPHY [facility] HISTORY: [place], evaluate for possible vascular lesion LEFT cerebellum. Recommended from head CT of 10/08/2024. COMPARISON: CTA 10/08/2024 TECHNIQUE: 3-D MR angiography is performed of the [place]. All images are reviewed including source images. Very small caliber distal RIGHT vertebral artery. RIGHT vertebral artery was noted to be intact on the recent CTA although small caliber. Normal basilar artery. Posterior communicating arteries are both patent. Posterior cerebral arteries are normal caliber. Intracranial portion of the internal carotid arteries are normal course and caliber. No significant atherosclerosis, stenosis or aneurysm identified. Middle and anterior cerebral arteries are both patent with no significant disease. Anterior communicating artery is also normal. MR/MR angio head wo con [id number] IMPRESSION: 1. No high-grade occlusion or atherosclerotic disease within the [place]. 2. Very small caliber distal RIGHT vertebral artery but it is patent. 3. No vascular lesion identified in the LEFT cerebellum.
[2024-10-09] MEDS: heparin 5,000 unit/mL INJ 1 mL 5000 UNIT SUBCUT (11:20)
[2024-10-09] MEDS: LORazepam 2 mg Tablet PO (11:50)
--- NOTE | 2024-10-09 11:59 | P.PN_ITS ---
Subjective 2 Subjective: Patient symptoms have resolved. He was hypoglycemic this morning and sugar was 60. Patient got a bolus of D10 which is currently running at this time. Patient's family is at bedside who states he had a word salad yesterday. He is awaiting to have MRI completed today. Family tells me that his latest A1c was 6.1. He is on 40 units of Lantus at home. They started off at A1c of 11. It seems he has had other hypoglycemic episodes at home as well. Yesterday when patient was with family and was experiencing the symptoms family thought that maybe his sugar was low so fed him apple cobbler. Subsequently they brought him to the hospital. I discussed with patient and family that his A1c if it was 6.1 he should not be on Lantus going forward. Apparently patient is getting scheduled lispro 10 units subcu 3 times daily. We do not need a tight blood sugar control. Patient is 84 years old. Hemoglobin A1c can be between 7-8 given his age. I discussed with him getting a stan sensor to keep an eye on blood sugar however do not trust that as it is not 100% accurate. I discussed with him to use fingersticks along with stan sensor to keep close monitoring on the blood sugar. I told him that I will called his primary care doctor Dr. Bonner today and discuss his blood sugar regimen going forward. He is awaiting MRI. He does have a possible venous anomaly in the cerebellum. Discussed with radiology. Will get MRA head and MRI head. Vitals/I&O/Wt Last Vital Signs Temp 97.6 F 10/09/24 11:17 Pulse 62 10/09/24 11:17 Resp 17 10/09/24 11:17 BP 158/80 10/09/24 11:17 Pulse Ox 96 10/09/24 11:17 O2 Del Method Nasal Cannula 10/09/24 11:17 O2 Flow Rate 94 10/08/24 23:31 10/08/24 10/09/24 10/09/24 22:59 06:59 14:59 Intake Total 250 / 250 Output Total 350 / 350 240 / 240 Balance -350 / -350 10 / 10 Weight last 48 hrs Weight 98.43 kg Weight 96.524 kg Weight 95.708 kg Physical Exam 2 Narrative: General The patient looks well in no apparent distress has family at the bedside son and [id number] very supportive. HEENT normocephalic/atraumatic neck neck is supple cardiovascular heart is regular lungs are pretty much clear abdomen soft nontender nondistended extremities intact no edema has good pulses neuro: nonfocal Data 10/09/24 05:29 10/09/24 05:29 Micro: Microbiology 10/08/24 19:55 Blood Culture - Preliminary Blood SPECIMEN COLLECTED 10/08/24 19:52 Blood Culture - Preliminary Blood SPECIMEN COLLECTED A&P Assessment and plan (1) TIA (transient ischemic attack): - Patient with strokelike symptoms and with risk factors - On 81 mg of aspirin at home - We had Plavix - Echocardiogram in the morning - MRI of the brain to rule out for any acute stroke - CT and CTA of the head and neck are clear. 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 Keep patient euglycemic ?Accu-Chek AC and at bedtime Was continue to follow through monitor (5) HTN (hypertension): Continue home medication for blood pressure, once the event is matured Plan GI and DVT prophylaxis in place with PPI and anticoagulant subcutaneously for care 10/09/2024 I believe patient's symptoms or probably not due to TIA however that is still a possibility. I think symptoms secondary to hypoglycemia are more favorable at this time. Hemoglobin A1c 5.8 this morning. He is on 40 of Lantus every day along with 10 units of insulin subcu 3 times daily. He is also on Farxiga and Januvia. His goal A1c should be between 7-8. Patient is 84 years old. Blood sugar this morning 146 and subsequently 70. I will call his primary care doctor and discussed the above and make adjustments to his blood sugar regimen. We will continue aspirin Plavix with dual antiplatelet therapy being there for 21 days. Echo is pending at this time. CTA head and neck CT head reviewed. Possible venous anomaly in cerebellar area. will check mri brain and mra brain pt/ot Continue to monitor manage blood glucose. Hold off on Lantus. Continue sliding scale insulin low-dose intensity. PDMP PDMP Reviewed: Not Reviewed Attestations 2 Medical Necessity Statement*: Patient is for 23-hour observation for TIA rule out CVA patient is under observation admission placement. Diagnoses TIA (transient ischemic attack) G45.9 Central hypogonadism E23.0 Pituitary macroadenoma D35.2 Diabetes mellitus E11.9 HTN (hypertension) I10
[2024-10-09 12:00] VITALS: BP 168/75; PULSE 60; RESP 17; TEMP 36.6
[2024-10-09 12:08] LABS: Glucose Point of Care 136 mg/dL (70-110)
[2024-10-09] MEDS: gadobenate dimeglumine 20 mL vial IV (12:46)
[2024-10-09] MEDS: sodium chloride 0.9% 1,000 ML 75 ML IV (13:11)
--- NOTE | 2024-10-09 15:28 | PM.DCS ---
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 TIA workup was completed including MRI and MRI brain. Patient's hemoglobin A1c was 5.8. Patient is 84 years old. Counseled family on stopping patient's home insulin at this time. Patient's A1c goal should be between 7-8. Called patient's primary care doctor Dr. Bonner over the phone and discussed his care with him. Dr. Bonner agrees with stopping insulin however we will keep Farxiga and Januvia for now. Patient will be set up with event monitor outpatient and was sent home with aspirin Plavix dual antiplatelet therapy for [address] gardiner to follow up in clinic. Patient has a known pituitary microadenoma that he will be following up with [facility]. He is already established there. Physical Exam Narrative: General The patient looks well in no apparent distress has family at the bedside son and [id number] very supportive. HEENT normocephalic/atraumatic neck neck is supple cardiovascular heart is regular lungs are pretty much clear abdomen soft nontender nondistended extremities intact no edema has good pulses neuro: nonfocal Discharge Data Studies Completed and Pending Completed Studies During Hospitalization Category Date Time Status CT head thrombolytic [id number] Stat Cat Scan 10/08/24 19:14 Completed CTA head neck [CT angio headneck* [id number]] Stat Cat Scan 10/08/24 19:22 Completed MR head wo/w con [id number] Urgent MRI 10/09/24 11:15 Completed MRA head [MR angio head wo con [id number]] Urgent MRI 10/09/24 11:17 Completed Pending at discharge Category Date Time Status Basic Metabolic Panel AM LABS Lab 10/10/24 04:00 Ordered Blood Culture Stat Lab 10/08/24 19:55 Results Complete Blood Count w/Auto AM LABS Lab 10/10/24 04:00 Ordered Magnesium AM LABS Lab 10/10/24 04:00 Ordered CV. echo complete* [id number] Routine Ultrasound 10/09/24 22:31 Taken Radiology Impressions Head CT 10/08/24 19:14 IMPRESSION: 1. No CT evidence of acute territorial infarct. 2. 8 mm curvilinear hypodensity in the left cerebellum. Favor prominent vascular structure such as developmental venous anomaly or other vascular lesion, but cannot definitively exclude acute hemorrhage. MRI is recommended for further evaluation. 3. 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 Pituitary protocol MRI recommended for further evaluation. ASSESSMENT: ASPECTS ([place] Stroke Program Early CT Score) is 10. ADDENDUM: 10/08/241944 THIS REPORT CONTAINS FINDINGS THAT MAY BE CRITICAL TO PATIENT CARE. The findings were verbally communicated via telephone conference with Dr. Sena at 7:43 PM CDT on 10/08/2024. Head/Neck CTA 10/08/24 19:22 IMPRESSION: 1. No large vessel occlusion or high-grade stenosis. 2. The curvilinear hyperdensity in the left cerebellum described on same-day noncontrast CT head report corresponds to a prominent enhancing venous structure, most consistent with developmental venous anomaly. IMPRESSION: Patent cervical carotid and vertebral arteries. No high-grade stenosis. REFERENCES: NASCET CRITERIA. The degree of stenosis in the cervical segment of the internal carotid artery is based on NASCET criteria. Normal is no stenosis. Mild is less than 50% stenosis. Moderate is 50-69% stenosis. Severe is 70% to 99% stenosis. Total occlusion is no detectable patent lumen. Head MRI 10/09/24 11:15 IMPRESSION: 1. LEFT cerebellar venous angioma corresponds to the finding described on recent CT head. 2. No intracranial hemorrhage. No acute infarct. 3. Large enhancing mass centered in the sella turcica without a separate pituitary gland identified. Highly suspicious for pituitary macroadenoma. This study was not performed as a dedicated pituitary exam but this is likely a pituitary macroadenoma. Consider follow-up MRI pituitary evaluation with and without contrast. Follow-up MRI can be performed on a nonurgent basis. Head MRA 10/09/24 11:17 IMPRESSION: 1. No high-grade occlusion or atherosclerotic disease within the [place] of [place]. 2. Very small caliber distal RIGHT vertebral artery but it is patent. 3. No vascular lesion identified in the LEFT cerebellum. Laboratory Results WBC 7.56 10^3/uL (3.29-11.43) 10/09/24 05:29 RBC 4.75 10^6/uL (3.85-5.65) 10/09/24 05:29 Hgb 13.50 g/dL (11.27-16.99) 10/09/24 05:29 Hct 43.2 % (37-53) 10/09/24 05:29 MCV 90.9 fl (82-101) 10/09/24 05:29 MCH 28.4 pg (27-33) 10/09/24 05:29 MCHC 31.3 g/dL (30-55) 10/09/24 05:29 RDW 15.1 % (12.1-15.1) 10/09/24 05:29 Plt Count 172 10^3/cmm (157-399) 10/09/24 05:29 MPV 12.0 fL (7.4-10.4) H 10/09/24 05:29 Neut % (Auto) 60.6 % 10/09/24 05:29 Lymph % (Auto) 24.3 % 10/09/24 05:29 [place] % (Auto) 10.4 % 10/09/24 05:29 Eos % (Auto) 3.7 % 10/09/24 05:29 Baso % (Auto) 0.7 % 10/09/24 05:29 Neut # (Auto) 4.58 10^3/uL (1.8-7.7) 10/09/24 05:29 Lymph # (Auto) 1.8 10^3/uL (0.8-4.8) 10/09/24 05:29 [place] # (Auto) 0.8 10^3/uL (0.2-0.9) 10/09/24 05:29 Eos # (Auto) 0.3 10^3/uL (0.0-0.8) 10/09/24 05:29 Baso # (Auto) 0.1 10^3/uL (0.0-0.1) 10/09/24 05:29 Nucleated RBC % (auto) 0 % 10/09/24 05:29 Nucleated RBCs # 0.0 /100WBC 10/09/24 05:29 PT 13.90 SECONDS (12.1-14.9) 10/08/24 19:20 INR 1.00 (0.8-1.2) 10/08/24 19:20 APTT 29.9 SECONDS (23.9-36.7) 10/08/24 19:20 Sodium 142 mmol/L (136-145) 10/09/24 05:29 Potassium 3.9 mmol/L (3.5-5.1) 10/09/24 05:29 Chloride 107 mmol/L (98-107) 10/09/24 05:29 Carbon Dioxide 27 mmol/L (22-29) 10/09/24 05:29 Anion Gap 11.9 (5-19) 10/09/24 05:29 BUN 18 mg/dL (8-23) 10/09/24 05:29 Creatinine 1.1 mg/dL (0.7-1.2) 10/09/24 05:29 GFR Calculation Not Reportable 10/09/24 05:29 Glucose 146 mg/dL (65-115) H 10/09/24 05:29 POC Glucose 136 mg/dL (70-110) H 10/09/24 11:14 Estimat Average Glucose 120 10/09/24 05:29 Hemoglobin A1c 5.8 % (4.0-6.0) 10/09/24 05:29 Calculated Osmolality 299 mOsm/kg (285-295) H 10/09/24 05:29 Lactic Acid 1.0 mmol/L (0.5-2.2) 10/08/24 19:52 Calcium 8.5 mg/dL (8.5-10.5) 10/09/24 05:29 Phosphorus 3.8 mg/dL (2.5-4.5) 10/09/24 05:29 Magnesium 2.2 mg/dL (1.7-2.3) 10/09/24 05:29 Total Bilirubin 0.4 mg/dL (0.15-1.2) 10/09/24 05:29 AST 26 U/L (0-40) 10/09/24 05:29 ALT 27 U/L (0-41) 10/09/24 05:29 Alkaline Phosphatase 78 U/L (40-130) 10/09/24 05:29 Total Protein 5.6 g/dL (6.6-8.7) L 10/09/24 05:29 Albumin 3.2 g/dL (3.5-5.2) L 10/09/24 05: Globulin 2.4 g/dL (1.3-4.6) 10/09/24 05:29 Triglycerides 70 mg/dL (0-150) 10/09/24 05: Cholesterol 104 mg/dL (0-200) 10/09/24 05: LDL Cholesterol, Calc 40 mg/dL (50-129) L 10/09/24 05: HDL Cholesterol 50 mg/dL (60-100) L 10/09/24 05: LDL/HDL Ratio 0.80 RATIO (0.00-3.22) 10/09/24 05: Cholesterol/HDL Ratio 2.08 mg/dL (1.0-5.00) 10/09/24 05:29 Urine Color Yellow (Yellow) 10/08/24 21:15 Urine Appearance Clear (CLEAR) 10/08/24 21:15 Urine pH 6.5 (5-7) 10/08/24 21:15 Ur Specific [place] 1.089 (1.005-1.030) H 10/08/24 21:15 Urine Protein Trace (Negative) A 10/08/24 21:15 Urine Glucose (UA) 3+ (Normal) H 10/08/24 21:15 Urine Ketones Negative (Negative) 10/08/24 21:15 Urine Blood Negative (Negative) 10/08/24 21:15 Urine Nitrate Negative (Negative) 10/08/24 21:15 Urine Bilirubin Negative (Negative) 10/08/24 21:15 Urine Urobilinogen 1.0 mg/dL (Negative) 10/08/24 21:15 Ur Leukocyte Esterase Negative (Negative) 10/08/24 21:15 Urine RBC 0-2 /hpf (0-2) 10/08/24 21:15 Urine WBC 0-5 /hpf (0-5) 10/08/24 21:15 Ur Squamous Epith Cells 0-5 /hpf (0-5) 10/08/24 21:15 Amorphous Sediment Not Reportable 10/08/24 21:15 Urine Bacteria None seen /hpf (NONE) 10/08/24 21:15 Hyaline Casts 0-4 /lpf H 10/08/24 21:15 Urine Opiates Screen Negative ng/mL (Negative) 10/08/24 21:15 Ur Barbiturates Screen Negative ng/mL (Negative) 10/08/24 21:15 Ur Phencyclidine Scrn Negative ng/mL (Negative) 10/08/24 21:15 Ur Amphetamines Screen Negative ng/mL (Negative) 10/08/24 21:15 U Benzodiazepines Scrn Positive ng/mL (Negative) H 10/08/24 21:15 Urine Cocaine Screen Negative ng/mL (Negative) 10/08/24 21:15 U Marijuana (THC) Screen Negative ng/mL (Negative) 10/08/24 21:15 Vitals Last Vital Signs Temp 97.6 F 10/09/24 11:17 Pulse 62 10/09/24 11:17 Resp 17 10/09/24 11:17 BP 158/80 10/09/24 11:17 Pulse Ox 96 10/09/24 11:17 O2 Del Method Nasal Cannula 10/09/24 11:17 O2 Flow Rate 94 10/08/24 23:31 Discharge Plan Discharge Patient Disposition: Home Condition: Stable Prescriptions: New atorvastatin 40 mg Tablet 40 mg PO BEDTIME Qty: 30 0RF clopidogrel 75 mg Tablet 75 mg PO DAILY Qty: 30 0RF Continued levothyroxine 25 mcg tablet 25 mcg PO DAILY Qty: 90 1RF Januvia 100 mg Tablet 100 mg PO DAILY lorazepam 0.5 mg tablet 0.5 mg PO BID pantoprazole 40 mg tablet,delayed release (DR/EC) 40 mg PO DAILY cholecalciferol (vitamin D3) [Vitamin D3] 25 mcg (1,000 unit) Capsule 25 mcg PO DAILY trazodone 100 mg Tablet 100 mg PO BEDTIME levothyroxine 125 mcg Tablet 125 mcg PO QAM sertraline 25 mg Tablet 25 mg PO DAILY dapagliflozin propanediol [Farxiga] 10 mg Tablet 10 mg PO DAILY aspirin 81 mg Tablet,Delayed Release (Dr/Ec) 81 mg PO DAILY Qty: 30 0RF Discontinued atorvastatin 20 mg tablet 20 mg PO BEDTIME insulin glargine [Lantus Solostar U-100 Insulin] 100 unit/mL (3 mL) insulin pen 40 unit SUBCUT QAM doxycycline hyclate 100 mg Tablet 100 mg PO DAILY Rx Instructions: for infection from hardware in leg - perscribed by ID physician insulin lispro 100 unit/mL Insulin Pen 10 unit SUBCUT TID Discharge Orders: Discharge Order (Routine); Ordered 10/09/24 Ordered By: Susana Almanza Referrals: Jay Gardiner MD [Primary Care Provider, [facility]] - 10/18/24 11:15 am Discharge Diet: Cardiac and Diabetic Discharge Activity: As per PT/OT instructions Patient Instructions: Atorvastatin (By mouth), Clopidogrel (By mouth), Hypoglycemia in a Person with Diabetes (GEN), Opioid Safety, Stroke Stoplight Discharge Attestations Time Spent in Discharge Care*: greater than 30 min Quality Metrics Clinical Quality Measures [ No reported AMI, CVA or VTE this stay] Coding Level of Care Code Acute Code for Chg Fwd Diagnoses TIA (transient ischemic attack) G45.9 Central hypogonadism E23.0 Pituitary macroadenoma D35.2 Diabetes mellitus E11.9 HTN (hypertension) I10
[2024-10-09 16:00] VITALS: BP 168/75; PULSE 60; RESP 17; TEMP 36.6; O2SAT 98
[2024-10-09 16:31] LABS: Glucose Point of Care 127 mg/dL (70-110)
[2024-10-09 17:50] VITALS: BP 168/75; PULSE 60; RESP 17; TEMP 36.6; O2SAT 98
--- NOTE | 2024-10-09 22:31 | USCV_ITS ---
Les Stubbs Age: 84 Gender: M : 1940 Exam Date: 10/09/2024 01:52 Ordering Phys: Alisson Barahona MD Technologist: ALEXIA Exam Location: [facility] – [place] Indication: acute stroke, slurred speech today, History of HTN, HL BP: 178 / 74 HR: 46 Rhythm: Sinus bradycardia Technical Quality: Adequate MEASUREMENTS (Male / Female) Normal Values 2D ECHO LV Diastolic Diameter PLAX 3.0 cm 4.2 - 5.9 / 3.9 - 5.3 cm IVS Diastolic Thickness 1.6 cm 0.6 - 1.0 / 0.6 - 0.9 cm IVS Systolic Thickness 2.0 cm LVPW Diastolic Thickness 2.1 cm 0.6 - 1.0 / 0.6 - 0.9 cm LVPW Systolic Thickness 2.1 cm LVOT Diameter 2.0 cm LV Ejection Fraction 2D Teich 60.1 % LV Ejection Fraction MOD 4C 51.0 % LV Ejection Fraction MOD 2C 50.1 % LV Ejection Fraction 2C AL 54.2 % LA Diameter 3.6 cm Aorta at Sinotubular Diameter 2.8 cm IVC Diameter 2.0 cm M-MODE LA Ao Ratio MM 1.4 AV Cusp Separation MM 2.0 cm DOPPLER AV Peak Velocity 72.0 cm/s LVOT Peak Velocity 58.0 cm/s AV Area Cont Eq vti 1.8 cm squared AV Area Cont Eq pk 2.4 cm squared MV Peak Velocity 106.0 cm/s MV Area PHT 3.0 cm squared Mitral E to A Ratio 0.8 TV Peak Velocity 239.0 cm/s TR Peak Velocity 252.0 cm/s TR Peak Gradient 25.4 mmHg TV Peak E Velocity 33.0 cm/s PV Peak Velocity 60.0 cm/s FINDINGS Left Ventricle Normal left ventricular size and systolic function, EF 55%.mild left ventricular hypertrophy. No regional wall motion abnormalities. Grade I/IV diastolic dysfunction (abnormal relaxation filling pattern), normal to mildly elevated filling pressures. Right Ventricle The right ventricle is normal in size and function. Right Atrium The right atrium is normal in size. Left Atrium The left atrium is normal in size. Mitral Valve No gross abnormalities noted Aortic Valve No gross abnormalities noted Tricuspid Valve Trace tricuspid valve regurgitation. Pulmonic Valve No gross abnormalities noted Pericardium No pericardial effusion. Aorta . Normal aortic annulus size. IVC Normal inferior vena cava. CONCLUSIONS Normal left ventricular size and systolic function, EF 55%.mild left ventricular hypertrophy. No regional wall motion abnormalities. Grade I/IV diastolic dysfunction (abnormal relaxation filling pattern), normal to mildly elevated filling pressures. Trace tricuspid valve regurgitation. Estimated pulmonary artery peak systolic pressure 28 mmHg normal cardiac chamber sizes. No intracardiac masses. No pericardial effusion. Dr Alison Wan MD FACC (Electronically Signed) Final Date: 09 October 2024 16:13 S
== END 2024-10-09 17:45 | disposition home or self-care (01) ==
LOC: ER 20:51 → MEDSURG 21:27
PROVIDERS: Admitting Provider Internal Medicine; Emergency Provider Emergency Medicine; PCP Family Medicine; Visit Provider Internal Medicine
DX: G45.9 Transient cerebral ischemic attack, unspecified (principal); R29.700 NIHSS score 0; E23.0 Hypopituitarism; D35.2 Benign neoplasm of pituitary gland; E11.9 Type 2 diabetes mellitus without complications; I10 Essential (primary) hypertension; Z79.82 Long term (current) use of aspirin; K21.9 Gastro-esophageal reflux disease without esophagitis; E66.9 Obesity, unspecified; Z68.31 Body mass index [BMI] 31.0-31.9, adult
CPT/HCPCS: 36415; 36416; 70450; 70496; 70498; 70544; 70553; 80053; 80061; 80306; 81001; 82962; 83036; 83605; 83735; 84100; 85025; 85610; 85730; 87040; 92523; 93005; 93306; 96361; 96372; 96374; 97116; 97161; 97165; 99285; A9577; G0378; J1644; J7030; J7799; J9999

== ENCOUNTER → 2025-03-25 12:21 | Outpatient (BNVA) | payer MEDICARE, SELFPAY | PROVIDERS: PCP Family Medicine; Referring Provider Family Medicine; Visit Provider Internal Medicine Cardiovascular Disease | DX: R07.9 Chest pain, unspecified (principal) | CPT/HCPCS: 93005 ==